=== PATIENT | female | born 1950 | race Two or more races ===

== ENCOUNTER → 2017-04-02 | Outpatient (CLI) | payer MEDICARE ==
[~2017-04-02] MED LIST: METOPROLOL PO
[2017-04-02 15:03] LABS: BASOPHILS # (AUTO) 0.04 x10^3/uL (0-0.1); BASOPHILS % (AUTO) 1 % (0-1); EOSINOPHILS # (AUTO) 0.03 x10^3/uL (0-0.4); EOSINOPHILS % (AUTO) 0 % (1-7); LYMPHOCYTES # (AUTO) 2.85 x10^3/uL (1-3.4); LYMPHOCYTES % (AUTO) 37 % (22-44); MD NO; MEAN CORPUSCULAR HEMOGLOBIN 30.9 pg (27.0-34.8); MEAN CORPUSCULAR HGB CONC 33.6 g/dL (32.4-35.8); MEAN PLATELET VOLUME 9.8 fL (7.4-10.4); MONOCYTES # (AUTO) 0.66 x10^3/uL (0.2-0.8); MONOCYTES % (AUTO) 9 % (2-9); NEUTROPHILS # (AUTO) 4.17 x10^3/uL (1.8-6.8); NEUTROPHILS % (AUTO) 54 % (42-75); PLATELET COUNT 226 x10^3/uL (130-400); RED BLOOD COUNT 4.96 x10^6/uL (3.82-5.3); RED CELL DISTRIBUTION WIDTH 13.1 % (9.6-15.2)
[2017-04-02 15:16] LABS: ANION GAP 5 mmol/L (5-15); CALCIUM 8.9 mg/dL (8.5-10.1); CHLORIDE 109 mmol/L (98-107); CREATININE 0.71 mg/dL (0.55-1.02)
== END | disposition home or self-care (01) ==
LOC: STAR 13:52
PROVIDERS: ATTEND Family Medicine
DX: Z01.818 Encounter for other preprocedural examination (principal); N81.10 Cystocele, unspecified; N81.6 Rectocele; R39.15 Urgency of urination
CPT/HCPCS: 36415; 71046; 80048; 85025; 93005

== ENCOUNTER 2017-04-26 09:12 | Observation (INO) | payer MEDICARE ==
[~2017-04-26] VITALS: Ht 152.4 cm; Wt 68.7 kg
[2017-04-26] MEDS ORDERED: LACTATED RINGERS 1,000 ML IV SCH (09:53)
[2017-04-26] MEDS ORDERED: METO-93 PO (09:57)
[2017-04-26] MEDS ORDERED: AMLO1CAP10 PO (09:57)
[2017-04-26] MEDS ORDERED: GABAPENTIN 300 MG CAPSULE PO ONE (10:00)
[2017-04-26] MEDS ORDERED: ACETAMINOPHEN 500 MG TABLET PO ONE (10:00)
[2017-04-26] MEDS ORDERED: LIDOCAINE-MPF 2% ,5ML ONE (10:16)
[2017-04-26] MEDS ORDERED: MIDAZOLAM 1 MG/ML, 2ML ONE (10:16)
[2017-04-26] MEDS ORDERED: LIDOCAINE GEL 2%, 5ML ONE (10:16)
[2017-04-26] MEDS ORDERED: FENTANYL PF 100 MCG/2ML ONE ×2 (10:16→13:49)
[2017-04-26] MEDS ORDERED: DEXAMETHASONE 4 MG/ML, 1ML ONE (10:18)
[2017-04-26] MEDS ORDERED: CEFAZOLIN 1,000 MG ONE (10:18)
[2017-04-26] MEDS ORDERED: NEOSTIGMINE 1 MG/ML, 10ML ONE (10:18)
[2017-04-26] MEDS ORDERED: GLYCOPYRROLATE 0.2MG/1ML, 5ML ONE (10:18)
[2017-04-26] MEDS ORDERED: SUCCINYLCHOLINE 20 MG/ML, 10ML ONE (10:18)
[2017-04-26] MEDS ORDERED: PROPOFOL 10 MG/ML, 20ML ONE (10:18)
[2017-04-26] MEDS ORDERED: ONDANSETRON 2MG/ML, 2ML ONE ×2 (10:18→14:46)
[2017-04-26] MEDS ORDERED: ROCURONIUM 10 MG/ML,10ML ONE (10:18)
[2017-04-26 10:30] VITALS: BP 143/84
[2017-04-26] MEDS ORDERED: FLUORESCEIN SODIUM 500 MG/5 ML ONE (10:57)
[2017-04-26] MEDS ORDERED: BUPIVACAINE/PF 0.25% ONE ×3 (10:57→13:20)
[2017-04-26] MEDS ORDERED: EPINEPHRINE 1 MG/ML, 1ML ONE ×3 (10:57→13:20)
[2017-04-26] MEDS ORDERED: NEOMY/POLYMYXIN B GU IRR. 1 ML IRRIG ONE (11:05)
[2017-04-26] MEDS ORDERED: SCOPOLAMINE PATCH, 1.5MG PATCH.TD72 TD ONE (11:12)
[2017-04-26] MEDS ORDERED: KETOROLAC 30 MG/1 ML ONE (11:12)
[2017-04-26] MEDS ORDERED: EPHEDRINE 50 MG/ML, 1ML ONE (11:41)
[2017-04-26] MEDS ORDERED: METOCLOPRAMIDE 5 MG/ML, 2ML ONE (11:42)
[2017-04-26] MEDS ORDERED: ONDANSETRON 2MG/ML, 2ML IVPush PRN (12:00)
[2017-04-26] MEDS ORDERED: morphine SULFATE 10 MG/ML, 1ML IV PRN (12:00)
[2017-04-26] MEDS ORDERED: OXYcodone 5 MG/5 ML ORAL.SOL UDC PO PRN (12:00)
[2017-04-26] MEDS ORDERED: PROMETHAZINE 12.5 MG SUPP PR PRN (12:00)
[2017-04-26] MEDS ORDERED: hydrALAzine 20 MG/ML, 1ML IV PRN (12:00)
[2017-04-26] MEDS ORDERED: DIAZEPAM 5 MG/ML, 2ML IVPush PRN (12:00)
[2017-04-26] MEDS ORDERED: MIDAZOLAM 1 MG/ML, 2ML IV PRN (12:00)
[2017-04-26] MEDS ORDERED: ALBUTEROL/IPRATROPIUM 2.5MG/0.5MG, 3 ML NPPB PRN (12:00)
[2017-04-26] MEDS ORDERED: FENTANYL PF 100 MCG/2ML IV PRN (12:00)
[2017-04-26] MEDS ORDERED: MEPERIDINE/PF 25MG/0.5ML IVPush PRN (12:00)
[2017-04-26] MEDS ORDERED: PROMETHAZINE 25 MG/ML, 1ML IV PRN (12:00)
[2017-04-26] MEDS ORDERED: METOPROLOL 1 MG/ML, 5ML IV PRN (12:00)
[2017-04-26] MEDS ORDERED: THROMBIN 5,000 UNIT VIAL TP ONE ×4 (13:19→14:12)
[2017-04-26] MEDS ORDERED: BUPIVACAINE/PF-EPI 0.25% 1:200K INFIL ONE (13:23)
[2017-04-26] MEDS: LACTATED RINGERS 1,000 ML IV SCH ×2 (13:57→23:00)
[2017-04-26] MEDS ORDERED: HYDROcodone/APAP 5/325 TABLET PO PRN (14:00)
[2017-04-26] MEDS ORDERED: IBUPROFEN 600 MG TABLET PO PRN (14:00)
[2017-04-26] MEDS ORDERED: PROMETHAZINE 25 MG SUPP PR ONE ×2 (14:00→21:59)
[2017-04-26] MEDS ORDERED: MEPERIDINE/PF 50 MG/ML ONE (14:16)
[2017-04-26] MEDS ORDERED: OXYcodone 5 MG/5 ML ORAL.SOL UDC ONE (14:16)
[2017-04-26] MEDS: ONDANSETRON 2MG/ML, 2ML IVPush PRN (20:54)
[2017-04-27 00:10] VITALS: BP 148/87
[2017-04-27 03:31] VITALS: BP 147/81
[2017-04-27] MEDS: LACTATED RINGERS 1,000 ML IV SCH (06:06)
[2017-04-27] MEDS: ONDANSETRON 2MG/ML, 2ML IVPush PRN (06:31)
[2017-04-27 06:57] VITALS: BP 130/61
[2017-04-27 08:30] VITALS: BP 140/80
== END 2017-04-27 10:13 | disposition home or self-care (01) ==
LOC: OUT 09:12 → 4NOR 19:25 → OUT 23:40 → 4NOR 23:41 → DCLOUNGE 04-27 09:46
PROVIDERS: ADMIT Obstetrics & Gynecology Female Pelvic Medicine and Reconstructive Surgery; ATTEND Obstetrics & Gynecology Female Pelvic Medicine and Reconstructive Surgery
DX: N81.4 Uterovaginal prolapse, unspecified (principal); N39.3 Stress incontinence (female) (male); N85.8 Other specified noninflammatory disorders of uterus; N39.0 Urinary tract infection, site not specified; K59.00 Constipation, unspecified; E78.00 Pure hypercholesterolemia, unspecified; Z78.0 Asymptomatic menopausal state; Z82.3 Family history of stroke
CPT/HCPCS: 57240; 58542; 88307; 96374; 96376; C1771; C1781; G0378; J0171; J0330; J0690; J1100; J1885; J2250; J2405; J2704; J2710; J2765; J3010; J3490; J7120